=== PATIENT | female | born 1940 | race American Indian/Alaskan Native ===

== ENCOUNTER 2017-01-11 04:30 | Emergency (ER) | payer MEDICARE ==
[2017-01-11 05:19] LABS: Basophils % (Auto) 0.9 % (0.0-1.8); Eosinophils % (Auto) 2.3 % (0.0-4.3); Hematocrit 35.3 % (30.3-42.9); Hemoglobin 11.7 gm/dl (10.1-14.3); Mean Corpuscular HGB Conc 33 % (30-34); Mean Corpuscular Hemoglobin 28 pg (28-32); Mean Corpuscular Volume 85 fl (79-97); Platelet Count 299 K/mm3 (140-440); Red Blood Count 4.17 M/mm3 (3.65-5.03); Red Cell Distribution Width 13.7 % (13.2-15.2); White Blood Count 3.9 K/mm3 (4.5-11.0)
[2017-01-11 05:29] LABS: INR 0.97 (0.87-1.13)
[2017-01-11 05:30] LABS: Partial Thromboplastin Time 30.1 Sec. (24.2-36.6)
[2017-01-11 05:33] LABS: Anion Gap 16 mmol/L; Blood Urea Nitrogen 14 mg/dL (7-17); Carbon Dioxide 26 mmol/L (22-30); Chloride 101.7 mmol/L (98-107); Glucose 91 mg/dL (65-100); Sodium 140 mmol/L (137-145)
--- NOTE | 2017-01-11 07:14 | XRay Report ---
AP CHEST: HISTORY: Stroke Compared to 12/16/16. AP view of the chest demonstrates a normal mediastinal and cardiac contour with clear lungs and normal bony and soft tissue structures. IMPRESSION: Unremarkable AP chest.
--- NOTE | 2017-01-11 07:29 | Cat Scan Report ---
FINAL REPORT PROCEDURE: CT HEAD/BRAIN WO CON TECHNIQUE: Computerized tomography of the head was performed without contrast material. HISTORY: weakness, COMPARISON: No prior studies are available for comparison. FINDINGS: Skull and scalp: Normal. Paranasal sinuses: Normal. Ventricles and subarachnoid spaces: There is mild central and cortical atrophy. There is no hydrocephalus.. Cerebrum: No evidence of hemorrhage, acute infarction or mass. 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 This was present previously. Pituitary adenoma or meningioma not excluded. MRI may be helpful if indicated clinically. Cerebellum and brainstem: No evidence of hemorrhage, acute infarction or mass. Vasculature: There is calcified plaque in the cavernous portions of the internal carotid arteries.. Comments: None. IMPRESSION: There is mild central and cortical atrophy. There is no hydrocephalus.. There is no hemorrhage or edema, mass effect or midline shift. 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 This was present previously. Pituitary adenoma or meningioma not excluded. MRI may be helpful if indicated clinically.
--- NOTE | 2017-01-11 09:21 | Emergency Department Report ---
ED General Adult HPI - General Chief complaint: Weakness Stated complaint: POSS CVA Time Seen by Provider: 01/11/17 08:52 Source: patient Mode of arrival: Ambulatory Limitations: No Limitations - History of Present Illness Initial comments: Patient awoke at approximately 3 AM with lip swelling. She's been on lisinopril for some time. She states that she's never had anything like this before. She states that occasionally she has had headaches but not currently nor last night. During the evening shift she essentially had a stroke protocol. She had no stroke symptoms. She had no difficulty with speech gait weakness numbness or vision change. Her complaint is completely restricted to her lips. The patient states that she thinks there has been no change since 3 AM. -: During the night Severity scale (0 -10): 3 Quality: other Consistency: constant (swelling) Improves with: none Associated Symptoms: denies other symptoms Treatments Prior to Arrival: none - Related Data Home Medications Medication Instructions Recorded Confirmed Last Taken Alendronate Sodium 70 mg PO 1XW 01/04/15 01/11/17 12/11/16 13:00 Aspirin [Aspirin BABY CHEW TAB] 81 mg PO DAILY 01/04/15 01/11/17 1 Day Ago Lisinopril 40 mg PO DAILY 01/04/15 01/11/17 1 Day Ago Latanoprost 0.005% 1 drop OU HS 12/17/16 01/11/17 1 Day Ago Previous Rx's Medication Instructions Recorded Last Taken Type Pantoprazole [Protonix] 40 mg PO QDAY #30 tablet 12/17/16 1 Day Ago Rx Allergies Allergy/AdvReac Type Severity Reaction Status Date / Time No Known Allergies Allergy Unverified 01/04/15 06:22 ED Review of Systems ROS: Stated complaint: POSS CVA Other details as noted in HPI Constitutional: denies: chills, fever Eyes: denies: eye pain, eye discharge, vision change ENT: as per HPI. denies: ear pain, throat pain Respiratory: denies: cough, shortness of breath, wheezing Cardiovascular: denies: chest pain, palpitations Endocrine: no symptoms reported Gastrointestinal: denies: abdominal pain, nausea, diarrhea Genitourinary: denies: urgency, dysuria, discharge Musculoskeletal: denies: back pain, joint swelling, arthralgia Skin: denies: rash, lesions Neurological: denies: headache, weakness, paresthesias Psychiatric: denies: anxiety, depression Hematological/Lymphatic: denies: easy bleeding, easy bruising ED Past Medical Hx - Past Medical History Previous Medical History?: Yes Hx Hypertension: Yes Additional medical history: GLAUCOMA/CATARACT - Surgical History Past Surgical History?: Yes Additional Surgical History: D&C - Social History Smoking Status: Never Smoker Substance Use Type: None - Medications Home Medications: Home Medications Medication Instructions Recorded Confirmed Last Taken Type Alendronate Sodium 70 mg PO 1XW 01/04/15 01/11/17 12/11/16 13:00 History Aspirin [Aspirin BABY CHEW TAB] 81 mg PO DAILY 01/04/15 01/11/17 1 Day Ago History Lisinopril 40 mg PO DAILY 01/04/15 01/11/17 1 Day Ago History Latanoprost 0.005% 1 drop OU HS 12/17/16 01/11/17 1 Day Ago History Pantoprazole [Protonix] 40 mg PO QDAY #30 tablet 12/17/16 01/11/17 1 Day Ago Rx ED Physical Exam - General Limitations: No Limitations General appearance: alert, in no apparent distress - Head Head exam: Present: atraumatic, normocephalic - Eye Eye exam: Present: normal appearance - ENT ENT exam: Present: normal exam, normal orophraynx, mucous membranes moist, other (one plus lip edema upper greater than lower) - Neck Neck exam: Present: normal inspection. Absent: tenderness, meningismus - Respiratory Respiratory exam: Present: normal lung sounds bilaterally. Absent: respiratory distress - Cardiovascular Cardiovascular Exam: Present: regular rate, normal rhythm. Absent: systolic murmur, diastolic murmur, rubs, gallop - GI/Abdominal GI/Abdominal exam: Present: soft, normal bowel sounds. Absent: distended, tenderness, guarding, rebound, rigid - Extremities Exam Extremities exam: Present: normal inspection - Back Exam Back exam: Present: normal inspection - Neurological Exam Neurological exam: Present: alert, oriented X3, CN II-XII intact, other ( cerebellar testing was normal. Visual butterfield were equal by confrontation.). Absent: motor sensory deficit - Psychiatric Psychiatric exam: Present: normal affect, normal mood - Skin Skin exam: Present: warm, dry, intact, normal color. Absent: rash ED Course Vital Signs 01/11/17 01/11/17 04:45 08:14 Temperature 97.6 F 97.6 F Pulse Rate 78 76 Respiratory 18 16 Rate Blood Pressure 144/100 127/78 [Right] O2 Sat by Pulse 100 99 Oximetry - Reevaluation(s) Reevaluation #1: The patient does not have a stroke syndrome. Her NIH stroke score is 0. She has no referrable symptoms to stroke. 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 It is mild. She will be given a prescription for amlodipine and treated with oral medications. 01/11/17 09:31 ED Medical Decision Making - Lab Data Result diagrams: 01/11/17 05:00 01/11/17 05:00 - EKG Data -: EKG Interpreted by Me EKG shows normal: sinus rhythm, axis, intervals, QRS complexes, ST-T waves Rate: normal - EKG Data Interpretation: normal EKG - Radiology Data Radiology results: report reviewed interpreted by me: CT of the head shows the sella turcica tumor which is unchanged from prior per radiologist. Critical care attestation.: If time is entered above; I have spent that time in minutes in the direct care of this critically ill patient, excluding procedure time. 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 This must be discontinued. I am going to substitute a new medication for your blood pressure. Follow-up is essential. You have a mass which is probably a near pituitary gland and benign. I'm going to refer you to a neurologist for this problem. You have had this for some time already. Require emergency treatment. Further evaluation may be appropriate. I'm going to refer you to a primary care doctor as history of requested. Medicines [id number] as I have recommended are: 1. Pepcid 20 mg twice a day for the next 5 days 2. Benadryl 25 mg every 6 hours while you have the lip swelling. Referrals: THALIA SMITH MD [Primary Care Provider] - 3-5 Days BECCA TREVINO MD [Staff Physician] - 3-5 Days ALMA RASCON MD [Staff Physician] - 3-5 Days Time of Disposition: 09:36
[2017-01-11] MEDS ORDERED: BENADRYL PO ONE (09:45)
[2017-01-11] MEDS ORDERED: PEPCID PO ONE (09:45)
[2017-01-11] MEDS ORDERED: DELTASONE PO ONE (09:45)
[2017-01-11 10:17] VITALS: BP 146/80
== END 2017-01-11 10:17 | disposition admitted as inpatient to this hospital (09) ==
LOC: ED 04:30
DX: E23.7 Disorder of pituitary gland, unspecified (principal); T78.3XXA Angioneurotic edema, initial encounter; I10 Essential (primary) hypertension; Z79.82 Long term (current) use of aspirin
CPT/HCPCS: 36415; 70450; 71010; 80048; 84484; 85025; 85610; 85670; 85730; 93005; 93010; 99285; J7512

== ENCOUNTER 2017-08-11 13:43 | Outpatient (CLI) | payer MEDICARE ==
[2017-08-11 14:19] LABS: Blood Urea Nitrogen 11 mg/dL (7-17)
--- NOTE | 2017-08-12 09:59 | Magnetic Resonance Report ---
MRI PITUITARY WITH/WITHOUT CONTRAST: Technique: Multiple T1 and T2 weighted images were obtained in multiple planes. Axial diffusion and gradient imaging was performed. Thin collimation images through the sella turcica Post contrast T1 images in two planes were obtained following IV gadolinium. Findings: Compared to the MR brain without contrast dated 03/16/13. The 1.2 x 0.7 x 1.2 cm well-defined sellar mass or cyst is essentially unchanged since 2012. This cyst or mass is increased signal on T1 and T2 images and demonstrates no evidence for enhancement following IV contrast. This lesion appears to displace normal pituitary tissue. No mass effect on the optic chiasm. 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 The remaining brain parenchyma signal intensity and its altman-white interface are normal on all sequences. No abnormal parenchymal signal. No diffusion restriction, hemorrhage, mass effect or extra-axial fluid collection. Ventricular size is normal and symmetric. The basal cisterns are clear. The brainstem and cerebellar hemispheres are within normal limits. The fourth ventricle is midline. The paranasal sinuses and mastoid air cells are well aerated. Normal flow voids are identified in the appropriate vessels at the [place]. No abnormal enhancement is identified following IV gadolinium. 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
== END 2017-08-11 13:44 | disposition home or self-care (01) ==
LOC: MRI 13:43
PROVIDERS: ATTEND Neurological Surgery
DX: R22.0 Localized swelling, mass and lump, head (principal); I10 Essential (primary) hypertension
CPT/HCPCS: 36415; 70553; 82565; 84520; A9577

== ENCOUNTER 2019-09-02 19:48 | Emergency (ER) | payer MEDICARE ==
--- NOTE | 2019-09-02 20:17 | Emergency Department Report ---
Blank Doc - Documentation Documentation: 78-year-old female that presents with URI symptoms. This initial assessment/diagnostic orders/clinical plan/treatment(s) is/are subject to change based on patient's health status, clinical progression and re- assessment by fellow clinical providers in the ED. Further treatment and workup at subsequent clinical providers discretion. Patient/guardians urged not to elope from the ED as their condition may be serious if not clinically assessed and managed. Initial orders include: 1- Patient sent to [facility] for further evaluation and treatment 2- CXR
--- NOTE | 2019-09-02 21:27 | XRay Report ---
CHEST 2 VIEWS INDICATION / CLINICAL INFORMATION: cough. COMPARISON: Chest radiograph 01/11/2017 FINDINGS: SUPPORT DEVICES: None. HEART / MEDIASTINUM: Stable. Heart size remains normal. LUNGS / PLEURA: No significant pulmonary or pleural abnormality. No pneumothorax. ADDITIONAL FINDINGS: No significant additional findings. IMPRESSION: No acute finding. No significant change. Signer Name: Dano Mcnamara MD Signed: 09/02/2019 9:23 PM Workstation Name: [id number]
--- NOTE | 2019-09-02 22:52 | Emergency Department Report ---
- General Chief Complaint: Upper Respiratory Infection Stated Complaint: COLD SYM Time Seen by Provider: 09/02/19 20:16 Source: patient Mode of arrival: Ambulatory Limitations: No Limitations - History of Present Illness Initial Comments: 78-year-old -[place] female patient with history of hypertension and GERD presents with complaints of sore throat, sneezing, coughing, and nasal congestion for the past 4 days. She denies any shortness of breath, hemoptysis, chest pain, nausea/vomiting/diarrhea, urinary symptoms, or abdominal pain. She states her cough is productive of yellow mucus. She has tried [id number] [place] that helps a little. She denies any history of diabetes or HIV, recent travel outside the [place]/contact with individuals with travel outside the [place]/individuals with known/suspected Covid19 Complaint: cough, sore throat, rhinorrhea - Related Data Home Medications Medication Instructions Recorded Confirmed Last Taken Alendronate Sodium 70 mg PO 1XW 01/04/15 01/11/17 12/11/16 13:00 Aspirin [Aspirin BABY CHEW TAB] 81 mg PO DAILY 01/04/15 01/11/17 1 Day Ago ~01/10/17 81 mg Lisinopril 40 mg PO DAILY 01/04/15 01/11/17 1 Day Ago ~01/10/17 Latanoprost 0.005% 1 drop OU HS 12/17/16 01/11/17 1 Day Ago ~01/10/17 Previous Rx's Medication Instructions Recorded Last Taken Type Pantoprazole [Protonix] 40 mg PO QDAY #30 tablet 12/17/16 1 Day Ago Rx ~01/10/17 Amlodipine Besylate [Norvasc] 2.5 mg PO DAILY #30 tab 01/11/17 Unknown Rx Acetaminophen [Acetaminophen TAB] 500 - 1,000 mg PO Q6HR PRN #20 09/03/19 Unknown Rx tablet Benzonatate 200 mg PO TID PRN #30 capsule 09/03/19 Unknown Rx Loratadine 10 mg PO QDAY 7 Days #7 tablet 09/03/19 Unknown Rx Allergies Allergy/AdvReac Type Severity Reaction Status Date / Time No Known Allergies Allergy Verified 11/03/18 09:19 ED Review of Systems ROS: Stated complaint: COLD SYM Other details as noted in HPI ED Past Medical Hx - Past Medical History Previous Medical History?: Yes Hx Hypertension: Yes Additional medical history: GLAUCOMA/CATARACT - Surgical History Additional Surgical History: D&C - Social History Smoking Status: Never Smoker Substance Use Type: None - Medications Home Medications: Home Medications Medication Instructions Recorded Confirmed Last Taken Type Alendronate Sodium 70 mg PO 1XW 01/04/15 01/11/17 12/11/16 13:00 History Aspirin [Aspirin BABY CHEW TAB] 81 mg PO DAILY 01/04/15 01/11/17 1 Day Ago History ~01/10/17 81 mg Lisinopril 40 mg PO DAILY 01/04/15 01/11/17 1 Day Ago History ~01/10/17 Latanoprost 0.005% 1 drop OU HS 12/17/16 01/11/17 1 Day Ago History ~01/10/17 Pantoprazole [Protonix] 40 mg PO QDAY #30 tablet 12/17/16 01/11/17 1 Day Ago Rx ~01/10/17 Amlodipine Besylate [Norvasc] 2.5 mg PO DAILY #30 tab 01/11/17 Unknown Rx Acetaminophen [Acetaminophen TAB] 500 - 1,000 mg PO Q6HR PRN #20 09/03/19 Unknown Rx tablet Benzonatate 200 mg PO TID PRN #30 capsule 09/03/19 Unknown Rx Loratadine 10 mg PO QDAY 7 Days #7 tablet 09/03/19 Unknown Rx ED Physical Exam - General Limitations: No Limitations General appearance: alert, in no apparent distress - Head Head exam: Present: atraumatic, normocephalic - Eye Eye exam: Present: normal appearance. Absent: scleral icterus - ENT ENT exam: Present: mucous membranes moist - Expanded ENT Exam Expanded Mouth exam: Absent: drooling, trismus Throat exam: Positive: tonsillar erythema. Negative: tonsillomegaly, tonsillar exudate, R peritonsillar mass, L peritonsillar mass - Neck Neck exam: Present: normal inspection, full ROM. Absent: lymphadenopathy - Respiratory Respiratory exam: Present: normal lung sounds bilaterally. Absent: respiratory distress, wheezes, rales, rhonchi, stridor - Cardiovascular Cardiovascular Exam: Present: regular rate, normal rhythm. Absent: systolic murmur, diastolic murmur, rubs, gallop - Extremities Exam Extremities exam: Present: normal inspection, full ROM. Absent: calf tenderness - Neurological Exam Neurological exam: Present: alert, oriented X3 - Psychiatric Psychiatric exam: Present: normal affect, normal mood - Skin Skin exam: Present: warm, dry, intact, normal color. Absent: rash, cyanosis, diaphoretic ED Course Vital Signs 09/02/19 09/02/19 09/02/19 20:08 20:16 23:52 Temperature 98.1 F 98.1 F 98.3 F Pulse Rate 77 79 71 Respiratory 18 18 20 Rate Blood Pressure 141/87 141/87 Blood Pressure 145/86 [Right] O2 Sat by Pulse 99 99 97 Oximetry ED Medical Decision Making - Radiology Data Radiology results: report reviewed CHEST 2 VIEWS INDICATION / CLINICAL INFORMATION: cough. COMPARISON: Chest radiograph 01/11/2017 FINDINGS: SUPPORT DEVICES: None. HEART / MEDIASTINUM: Stable. Heart size remains normal. LUNGS / PLEURA: No significant pulmonary or pleural abnormality. No pne umothorax. ADDITIONAL FINDINGS: No significant additional findings. IMPRESSION: No acute finding. No significant change. - Medical Decision Making Patient here with complaints of cough, congestion, sore throat. She is afebrile and non-tachycardic. Erythema noted bilaterally of tonsils, physical exam is otherwise normal. Chest x-ray is negative for acute findings. Rapid strep is negative. Patient is nontoxic-appearing and stable for discharge home. Symptomatic treatment for viral syndrome recommended. Also recommend follow-up with primary care provider in 3 days. Discussed strict return precautions in detail with patient who verbalizes understanding. Critical care attestation.: If time is entered above; I have spent that time in minutes in the direct care of this critically ill patient, excluding procedure time. ED Disposition Clinical Impression: Viral syndrome, Viral pharyngitis Disposition: DC-01 TO HOME OR SELFCARE Is pt being admited?: No Condition: Stable Instructions: Viral Syndrome (ED), Pharyngitis (ED) Prescriptions: Acetaminophen [Acetaminophen TAB] 500 - 1,000 mg PO Q6HR PRN #20 tablet PRN Reason: pain Benzonatate 200 mg PO TID PRN #30 capsule PRN Reason: Cough Loratadine 10 mg PO QDAY 7 Days #7 tablet Referrals: BONI SMITH [Other] - 3-5 Days
[2019-09-02 23:53] VITALS: BP 145/86
== END 2019-09-03 00:40 | disposition home or self-care (01) ==
LOC: ED 19:48
DX: J02.8 Acute pharyngitis due to other specified organisms (principal); B34.9 Viral infection, unspecified; I10 Essential (primary) hypertension; H40.9 Unspecified glaucoma; K21.9 Gastro-esophageal reflux disease without esophagitis; Z79.899 Other long term (current) drug therapy
CPT/HCPCS: 71046; 87116; 87430

== ENCOUNTER 2021-08-09 13:06 | Outpatient (CLI) | payer MEDICARE ==
--- NOTE | 2021-08-09 15:32 | XRay Report ---
XR ankle 3+V RT INDICATION: PAIN IN LEFT ANKLE. COMPARISON: No relevant prior imaging study available. FINDINGS: No acute skeletal abnormality. No significant soft tissue abnormality. IMPRESSION: 1. No acute findings. Signer Name: Jeyson Leon MD Signed: 08/09/2021 3:21 PM Workstation Name: [id number]
== END 2021-08-09 13:07 | disposition home or self-care (01) ==
LOC: XRAY 13:06
PROVIDERS: ATTEND Orthopaedic Surgery
DX: M25.572 Pain in left ankle and joints of left foot (principal); M25.571 Pain in right ankle and joints of right foot

== ENCOUNTER 2022-01-15 03:57 | Emergency (ER) | payer MEDICARE ==
[2022-01-15] MEDS ORDERED: dexAMETHasone 20 MG/5 ML VIAL IM ONE (07:43)
[2022-01-15] MEDS ORDERED: ACETAMINOPHEN 500 MG TAB PO ONE (07:44)
[2022-01-15] MEDS ORDERED: AMOXICILLIN/K CLAV 875/125MG TAB PO ONE (07:44)
--- NOTE | 2022-01-15 08:16 | Emergency Department Report ---
ED General Adult HPI - General Chief complaint: Sore Throat Stated complaint: SORE THROAT Time Seen by Provider: 01/15/22 07:29 Source: patient Mode of arrival: Ambulatory Limitations: No Limitations - History of Present Illness Initial comments: pt is a 78-year-old -[place] female patient with history of hypertension and GERD presents with complaint of sore throat,n for the past week. pain is described as burning sharp exacerbated by swallowing, She denies any shortness of breath, hemoptysis, chest pain, nausea/vomiting/diarrhea, urinary symptoms, or abdominal pain. She denies suspicious travel or contact with individuals wiht known symptoms. Urology interviewed via POV and family member pressures were x3 amatory steady gait. Nontoxic at this time - Related Data Home Medications Medication Instructions Recorded Confirmed Last Taken Alendronate Sodium 70 mg PO 1XW 01/04/15 01/11/17 12/11/16 13:00 Aspirin [Aspirin BABY CHEW TAB] 81 mg PO DAILY 01/04/15 01/11/17 1 Day Ago ~01/10/17 81 mg Lisinopril 40 mg PO DAILY 01/04/15 01/11/17 1 Day Ago ~01/10/17 Latanoprost 0.005% 1 drop OU HS 12/17/16 01/11/17 1 Day Ago ~01/10/17 Previous Rx's Medication Instructions Recorded Last Taken Type Pantoprazole [Protonix] 40 mg PO QDAY #30 tablet 12/17/16 1 Day Ago Rx ~01/10/17 Amlodipine Besylate [Norvasc] 2.5 mg PO DAILY #30 tab 01/11/17 Unknown Rx Acetaminophen [Acetaminophen TAB] 500 - 1,000 mg PO Q6HR PRN #20 09/03/19 Unknown Rx tablet Benzonatate 200 mg PO TID PRN #30 capsule 09/03/19 Unknown Rx Loratadine 10 mg PO QDAY 7 Days #7 tablet 09/03/19 Unknown Rx Acetaminophen 650 mg PO Q6H PRN #30 cap 01/15/22 Unknown Rx Amoxicillin [Trimox CAP] 500 mg PO Q8H 7 Days #21 capsule 01/15/22 Unknown Rx Benzocaine/Menthol [Cepacol Sore 1 each MM Q4H PRN #20 lozenge 01/15/22 Unknown Rx Throat Lozenge] predniSONE [Deltasone] 20 mg PO QDAY 5 Days #5 tab 01/15/22 Unknown Rx Allergies Allergy/AdvReac Type Severity Reaction Status Date / Time lisinopril Allergy Angioedema Verified 01/15/22 04:02 ED Review of Systems ROS: Stated complaint: SORE THROAT Other details as noted in HPI Constitutional: malaise. denies: chills, fever Eyes: denies: eye pain, eye discharge, vision change ENT: throat pain. denies: ear pain, dental pain, hearing loss, epistaxis, congestion Respiratory: denies: cough, shortness of breath, wheezing Cardiovascular: denies: chest pain, palpitations Endocrine: no symptoms reported Gastrointestinal: denies: abdominal pain, nausea, vomiting, diarrhea Genitourinary: denies: urgency, dysuria, discharge Musculoskeletal: denies: back pain, joint swelling, arthralgia Skin: denies: rash, lesions Neurological: denies: headache, weakness, paresthesias, vertigo Psychiatric: denies: anxiety, depression Hematological/Lymphatic: denies: easy bleeding, easy bruising ED Past Medical Hx - Past Medical History Previous Medical History?: Yes Hx Hypertension: Yes Hx Arthritis: Yes Additional medical history: GLAUCOMA/CATARACT - Surgical History Past Surgical History?: Yes Additional Surgical History: D&C - Social History Smoking Status: Never Smoker Substance Use Type: None - Medications Home Medications: Home Medications Medication Instructions Recorded Confirmed Last Taken Type Alendronate Sodium 70 mg PO 1XW 01/04/15 01/11/17 12/11/16 13:00 History Aspirin [Aspirin BABY CHEW TAB] 81 mg PO DAILY 01/04/15 01/11/17 1 Day Ago History ~01/10/17 81 mg Lisinopril 40 mg PO DAILY 01/04/15 01/11/17 1 Day Ago History ~01/10/17 Latanoprost 0.005% 1 drop OU HS 12/17/16 01/11/17 1 Day Ago History ~01/10/17 Pantoprazole [Protonix] 40 mg PO QDAY #30 tablet 12/17/16 01/11/17 1 Day Ago Rx ~01/10/17 Amlodipine Besylate [Norvasc] 2.5 mg PO DAILY #30 tab 01/11/17 Unknown Rx Acetaminophen [Acetaminophen TAB] 500 - 1,000 mg PO Q6HR PRN #20 09/03/19 Unknown Rx tablet Benzonatate 200 mg PO TID PRN #30 capsule 09/03/19 Unknown Rx Loratadine 10 mg PO QDAY 7 Days #7 tablet 09/03/19 Unknown Rx Acetaminophen 650 mg PO Q6H PRN #30 cap 01/15/22 Unknown Rx Amoxicillin [Trimox CAP] 500 mg PO Q8H 7 Days #21 capsule 01/15/22 Unknown Rx Benzocaine/Menthol [Cepacol Sore 1 each MM Q4H PRN #20 lozenge 01/15/22 Unknown Rx Throat Lozenge] predniSONE [Deltasone] 20 mg PO QDAY 5 Days #5 tab 01/15/22 Unknown Rx ED Physical Exam - General Limitations: No Limitations General appearance: alert, in no apparent distress - Head Head exam: Present: normocephalic, normal inspection - Eye Eye exam: Present: PERRL, EOMI. Absent: conjunctival injection, nystagmus Pupils: Present: normal accommodation - ENT ENT exam: Present: mucous membranes moist, TM's normal bilaterally, normal external ear exam - Expanded ENT Exam Expanded Throat exam: Positive: tonsillar erythema, tonsillomegaly, tonsillar exudate, other (Uvula midline no lesions no stridor or wheezing). Negative: R peritonsillar mass, L peritonsillar mass - Neck Neck exam: Present: normal inspection, full ROM, lymphadenopathy. Absent: tenderness (After oh), meningismus, thyromegaly - Respiratory Respiratory exam: Present: normal lung sounds bilaterally. Absent: respiratory distress, wheezes, stridor, chest wall tenderness - Cardiovascular Cardiovascular Exam: Present: regular rate, normal rhythm, normal heart sounds. Absent: systolic murmur, diastolic murmur, rubs, gallop - GI/Abdominal GI/Abdominal exam: Present: soft, normal bowel sounds. Absent: distended, tenderness - Rectal Rectal exam: Present: deferred - Extremities Exam Extremities exam: Present: normal inspection, full ROM, normal capillary refill. Absent: tenderness - Back Exam Back exam: Present: normal inspection, full ROM. Absent: CVA tenderness (R), CVA tenderness (L) - Neurological Exam Neurological exam: Present: alert, oriented X3, CN II-XII intact, normal gait - Expanded Neurological Exam Expanded Patient oriented to: Present: person, place, time Speech: Present: fluid speech Cranial nerves: Gag Reflex: Normal, Tongue Deviation: Normal Motor strength exam: RUE: 5, LUE: 5, RLE: 5, LLE: 5 Best Eye Response ([place]): (4) open spontaneously Best Motor Response ([place]): (6) obeys commands Best Verbal Response ([place]): (5) oriented [place] Total: 15 - Psychiatric Psychiatric exam: Present: normal affect, normal mood - Skin Skin exam: Present: warm, dry, intact, normal color. Absent: rash ED Course Vital Signs 01/15/22 03:59 Temperature 98.0 F Pulse Rate 94 H Respiratory 18 Rate Blood Pressure 140/87 O2 Sat by Pulse 97 Oximetry ED Medical Decision Making - Medical Decision Making Rapid strep pending, exam is consistent with pharyngitis there is no Peritonsillar abscess airway remains patent plan treat for pharyngitis, follow- up with primary care doctor in 2 to 3 days. Patient verbalized agreement understanding with discharge plan. Patient DC'd home in stable condition at this time. Critical care attestation.: If time is entered above; I have spent that time in minutes in the direct care of this critically ill patient, excluding procedure time. ED Disposition Clinical Impression: Pharyngitis Qualifiers: Pharyngitis/tonsillitis etiology: unspecified etiology Qualified Code(s): J02.9 - Acute pharyngitis, unspecified Disposition: HOME / SELF CARE / HOMELESS Is pt being admited?: No Does the pt Need Aspirin: No Condition: Stable Instructions: Pharyngitis, [id number] Additional Instructions: Take medication as prescribed, follow-up with your doctor in 2 to 3 days. Return to emergency department should symptoms worsen. Prescriptions: Acetaminophen 650 mg PO Q6H PRN #30 cap PRN Reason: pain Benzocaine/Menthol [Cepacol Sore Throat Lozenge] 1 each MM Q4H PRN #20 lozenge PRN Reason: Throat Pain predniSONE [Deltasone] 20 mg PO QDAY 5 Days #5 tab Amoxicillin [Trimox CAP] 500 mg PO Q8H 7 Days #21 capsule Referrals: KANNAN MESA MD [Staff Physician] - 3-5 Days Time of Disposition: 08:21
[2022-01-15 08:53] VITALS: BP 148/88
== END 2022-01-15 08:47 | disposition home or self-care (01) ==
LOC: ED 03:57
DX: J02.9 Acute pharyngitis, unspecified (principal); I10 Essential (primary) hypertension; M19.90 Unspecified osteoarthritis, unspecified site; Z98.890 Other specified postprocedural states; Z88.8 Allergy status to other drugs, medicaments and biological substances; Z79.899 Other long term (current) drug therapy; Z79.82 Long term (current) use of aspirin
CPT/HCPCS: 96372; 99282; J1100